=== PATIENT | male | born 1960 | race Caucasian/White ===

== ENCOUNTER 2018-05-22 09:09 | Inpatient (IN) | payer MEDICAID ==
[2018-05-21 14:00] LABS: BASOPHILS # (AUTO) 0.1 X10'3 (0-0.2); BASOPHILS % (AUTO) 1.3 % (0-1); EOSINOPHILS # (AUTO) 0.2 X10'3 (0-0.9); EOSINOPHILS % (AUTO) 3.8 % (0-6); LYMPHOCYTES # (AUTO) 1.6 X10'3 (1.1-4.8); LYMPHOCYTES % (AUTO) 32.9 % (21-51); MEAN CORPUSCULAR HEMOGLOBIN 32.2 PG (27.0-31.0); MEAN CORPUSCULAR VOLUME 94.8 FL (78-98); MONOCYTES # (AUTO) 0.4 X10'3 (0-0.9); MONOCYTES % (AUTO) 8.4 % (2-12); NEUTROPHILS # (AUTO) 2.6 X10'3 (1.8-7.7); NEUTROPHILS % (AUTO) 53.6 % (42-75); PRE OP HEMOGLOBIN 15.9 g/dL (14.0-17.9); PRE OP PLATELET COUNT 194 X10'3 (140-440); RED BLOOD COUNT 4.96 X10'6 (4.70-6.10); RED CELL DISTRIBUTION WIDTH 13.2 % (11.5-14.5)
[2018-05-21 14:14] LABS: ALBUMIN 3.6 G/DL (3.4-5.0); ALKALINE PHOSPHATASE 57 IU/L (46-116); BLOOD UREA NITROGEN 12 MG/DL (7-18); BUN/CREATININE RATIO 10.4 (5.4-32.0); CALCIUM 9.2 MG/DL (8.5-10.1); CHLORIDE 102 MMOL/L (99-107); CREATININE 1.15 MG/DL (0.60-1.10); PRE OP ALT 67 U/L (30-65); PRE OP ANION GAP 6 (8-16); PRE OP AST 29 U/L (10-37); PRE OP BILIRUB, TOTAL 0.5 MG/DL (0.0-1.0); PRE OP GLUCOSE 109 MG/DL (70-104); PRE OP POTASSIUM 4.1 MMOL/L (3.4-5.1); PRE OP SODIUM 137 MMOL/L (135-145); TOTAL CARBON DIOXIDE 28.8 MMOL/L (24-32); TOTAL PROTEIN 7.1 G/DL (6.4-8.2); eGFR 65 ML/MIN
[~2018-05-22] VITALS: Ht 175.3 cm; Wt 84.0 kg
[2018-05-22] VITALS (22 sets, daily range): BP systolic 90–145; BP diastolic 53–74
[~2018-05-22 09:09] MED LIST: NO HOME MEDS; cefazolin/dext.iso 2gm/100 ML IV ONE; famotidine 20mg tablet PO ONE; ringers solution, lacted 1,000 ML IV SCH; vancomycin inj 1,500 MG in normal saline 300ml IV soln IV ONE
[2018-05-22] MEDS ORDERED: ROPIVAcaine 0.5% (5mg/ml) 30ml vial ONE ×2 (11:33→11:52)
[2018-05-22] MEDS ORDERED: propofol inj 20 ML IV ONE (11:38)
[2018-05-22] MEDS ORDERED: LIDOcaine 2% (20mg/ml) 5ml vial ONE (11:38)
[2018-05-22] MEDS ORDERED: dexamethasone sod phosphate 4mg/ml inj. ONE (11:38)
[2018-05-22] MEDS ORDERED: ondansetron/PF 4mg/2ml inj ONE (11:38)
[2018-05-22] MEDS ORDERED: ketorolac trometh. 30mg/ml inj. ONE (11:52)
[2018-05-22] MEDS ORDERED: vancomycin 1,000mg inj ONE (11:55)
[2018-05-22] MEDS ORDERED: sevoflurane 250ml liquid IH ONE (12:32)
[2018-05-22] MEDS ORDERED: tranexamic acid inj. 840 MG in normal saline 100ml IV soln 91.6 ML IV ONE ×2 (12:35→12:40)
[2018-05-22] MEDS ORDERED: fentaNYL/PF 50MCG/1 ML 2ML syringe ONE ×2 (12:39→14:19)
[2018-05-22] MEDS ORDERED: midazolam 2 mg/2 ml injection ONE (12:39)
[2018-05-22] MEDS ORDERED: ringers solution, lacted 1,000 ML IV SCH (13:32)
[2018-05-22] MEDS ORDERED: meperidine/PF 25mg/ml syringe IV PRN ×2 (13:35)
[2018-05-22] MEDS ORDERED: hydrALAZINE 20mg/ml inj. IV PRN (13:35)
[2018-05-22] MEDS ORDERED: ondansetron/PF 4mg/2ml inj IV PRN ×2 (13:35→14:45)
[2018-05-22] MEDS ORDERED: enalaprilat dihydrate 2.5mg/2ml vial IV PRN (13:35)
[2018-05-22] MEDS ORDERED: morphine 4 MG/ML inj SYRINge IV PRN ×2 (13:35)
[2018-05-22] MEDS ORDERED: bisacodyl 10mg suppository rectal RC PRN (14:45)
[2018-05-22] MEDS ORDERED: HYDROmorphone 1 mg/ml syringe IV PRN ×2 (14:45)
[2018-05-22] MEDS ORDERED: acetaminophen 325mg tablet PO PRN (14:45)
[2018-05-22] MEDS ORDERED: diphenhydrAMINE 25mg capsule PO PRN ×2 (14:45)
[2018-05-22] MEDS ORDERED: oxyCODONE IR 5mg (immed. release) tablet PO PRN ×2 (14:45)
[2018-05-22] MEDS ORDERED: magnesium hydroxide 30ml (MOM) UD suspension PO PRN (14:45)
[2018-05-22] MEDS: potassium cl 20mEq in 1/2 NS 1,000 ML IV SCH (16:59)
[2018-05-22] MEDS: ceFAZolin 1GM/D5W- ADD-VANTAGE 50 ML IV SCH (16:59)
[2018-05-22] MEDS ORDERED: tranexamic acid inj. 840 MG in normal saline 100ml IV soln 100 ML IV ONE (17:45)
[2018-05-22] MEDS ORDERED: vancomycin/NS 1 GM ADD-VANTAGE 250 ML IV SCH (20:00)
[2018-05-22] MEDS: ketorolac tromethamine 15mg/ml inj. IV SCH (20:21)
[2018-05-22] MEDS: gabapentin 300mg capsule PO SCH (20:21)
[2018-05-22] MEDS: acetaminophen 325mg tablet PO SCH (20:22)
[2018-05-22] MEDS ORDERED: sennosides 8.6mg tablet PO SCH (21:00)
[2018-05-23] MEDS: ceFAZolin 1GM/D5W- ADD-VANTAGE 50 ML IV SCH (00:16)
[2018-05-23 02:00] VITALS: BP 90/52
[2018-05-23] MEDS: acetaminophen 325mg tablet PO SCH ×2 (02:07→08:36)
[2018-05-23] MEDS: ketorolac tromethamine 15mg/ml inj. IV SCH ×2 (02:08→08:39)
[2018-05-23] MEDS: potassium cl 20mEq in 1/2 NS 1,000 ML IV SCH ×2 (02:37→08:33)
[2018-05-23 06:00] VITALS: BP 101/59
[2018-05-23 06:11] LABS: BASOPHILS % (AUTO) 0.3 % (0-1); EOSINOPHILS # (AUTO) 0.1 X10'3 (0-0.9); EOSINOPHILS % (AUTO) 0.7 % (0-6); HEMATOCRIT 34.1 % (42.0-52.0); HEMOGLOBIN 11.5 g/dl (14.0-17.9); LYMPHOCYTES # (AUTO) 0.7 X10'3 (1.1-4.8); LYMPHOCYTES % (AUTO) 8.2 % (21-51); MEAN CORPUSCULAR HEMOGLOBIN 32.2 PG (27.0-31.0); MEAN CORPUSCULAR HGB CONC 33.7 % (33.0-36.5); MEAN CORPUSCULAR VOLUME 95.4 FL (78-98); MEAN PLATELET VOLUME 8.3 FL (7.4-10.4); MONOCYTES # (AUTO) 0.4 X10'3 (0-0.9); MONOCYTES % (AUTO) 4.8 % (2-12); PLATELET COUNT 140 X10'3 (140-440); RED BLOOD COUNT 3.57 X10'6 (4.70-6.10); RED CELL DISTRIBUTION WIDTH 12.9 % (11.5-14.5); WHITE BLOOD COUNT 8.2 X10'3 (4.5-11.0)
[2018-05-23 08:02] LABS: ANION GAP 8 (8-16); CHLORIDE 103 MMOL/L (99-107); POTASSIUM 4.3 MMOL/L (3.5-5.1); SODIUM 133 MMOL/L (135-145); TOTAL CARBON DIOXIDE 21.7 MMOL/L (24-32)
[2018-05-23] MEDS ORDERED: aspirin 325mg tablet PO SCH (08:30)
[2018-05-23] MEDS: gabapentin 300mg capsule PO SCH (08:35)
[2018-05-23 10:28] VITALS: BP 131/56
[2018-05-23] MEDS ORDERED: celeCOXIB 100mg capsule PO SCH (20:00)
[2018-05-24] MEDS ORDERED: acetaminophen 325mg tablet PO PRN (14:45)
== END 2018-05-23 11:29 | disposition home or self-care (01) | DRG 315 ==
LOC: PAS IN 09:09 → EDSTATUS 09:30 → ORTHO 4S 16:26
PROVIDERS: ADMIT Orthopaedic Surgery; ATTEND Orthopaedic Surgery
PROC: 0LS30ZZ Reposition Right Upper Arm Tendon, Open Approach (ICD-10-PCS; 2018-05-22)
PROC: 3E0T3BZ Introduction of Anesthetic Agent into Peripheral Nerves and Plexi, Percutaneous Approach (ICD-10-PCS; 2018-05-22)
PROC: 0RRJ00Z Replacement of Right Shoulder Joint with Reverse Ball and Socket Synthetic Substitute, Open Approach (ICD-10-PCS; principal; 2018-05-22 12:37)
DX: M19.011 Primary osteoarthritis, right shoulder (principal); D62 Acute posthemorrhagic anemia; M75.121 Complete rotator cuff tear or rupture of right shoulder, not specified as traumatic; M65.9 Synovitis and tenosynovitis, unspecified
CPT/HCPCS: 36415; 80051; 80053; 85025; 97110; 97116; 97161; A4565; A7000; G0378; J0690; J1100; J1885; J2001; J2250; J2405; J2704; J2795; J3010; J3370; J7030; J7040; J7120